=== PATIENT | male | born 1960 | race Caucasian/White ===

== ENCOUNTER 2018-04-23 14:54 | Inpatient (IN) | payer MEDICAID, OTHER ==
[2018-04-23] VITALS (16 sets, daily range): BP systolic 139–173; BP diastolic 76–107
[~2018-04-23] VITALS: Ht 185.4 cm; Wt 100.0 kg
[~2018-04-23 14:54] MED LIST: niCARDipine in sodium Chloride, iso-osm 20mg/200ml bag IV ONE
[2018-04-23] MEDS ORDERED: morphine 4 MG/ML inj SYRINge IV ONE (15:55)
[2018-04-23] MEDS ORDERED: ondansetron/PF 4mg/2ml inj IV ONE (15:55)
[2018-04-23] MEDS ORDERED: normal saline 1000ml 1,000 ML IV ONE (16:34)
[2018-04-23] MEDS ORDERED: ceFAZolin 1000mg inj ONE ×3 (17:03→19:50)
[2018-04-23 17:10] LABS: BASOPHILS # (AUTO) 0.1 X10'3 (0-0.2); BASOPHILS % (AUTO) 0.5 % (0-1); EOSINOPHILS % (AUTO) 0 % (0-6); HEMATOCRIT 47.9 % (42.0-52.0); HEMOGLOBIN 16.1 g/dl (14.0-17.9); LYMPHOCYTES # (AUTO) 1.1 X10'3 (1.1-4.8); LYMPHOCYTES % (AUTO) 8.4 % (21-51); MEAN CORPUSCULAR HEMOGLOBIN 33.3 PG (27.0-31.0); MEAN CORPUSCULAR HGB CONC 33.6 % (33.0-36.5); MEAN CORPUSCULAR VOLUME 98.9 FL (78-98); MONOCYTES # (AUTO) 0.8 X10'3 (0-0.9); NEUTROPHILS # (AUTO) 11.2 X10'3 (1.8-7.7); NEUTROPHILS % (AUTO) 85.1 % (42-75); PLATELET COUNT 397 X10'3 (140-440); RED BLOOD COUNT 4.85 X10'6 (4.70-6.10); RED CELL DISTRIBUTION WIDTH 15.5 % (11.5-14.5); WHITE BLOOD COUNT 13.1 X10'3 (4.5-11.0)
[2018-04-23 17:19] LABS: PROTHROMBIN TIME 10.3 SECONDS (9.0-12.0)
[2018-04-23 17:23] LABS: CLARITY,URINE CLEAR (Clear); COLOR,URINE YELLOW (Yellow); GLUCOSE, URINE NEGATIVE (Neg); KETONES,URINE TRACE mg/dl (Neg); LEUKOCYTE ESTERASE ,URINE NEGATIVE (Neg); NITRITES, URINE NEGATIVE (Neg); OCCULT BLOOD,URINE TRACE-INTACT (Neg); PROTEIN,URINE 30 mg/dl (Neg); UROBILINOGEN,URINE 0.2 E.U/dL (0.2-1.0)
[2018-04-23 17:25] LABS: ALANINE AMINOTRANSFERASE 38 U/L (12-78); ALBUMIN 3.3 G/DL (3.4-5.0); ALBUMIN/GLOBULIN RATIO 0.8 (1.1-1.5); ALKALINE PHOSPHATASE 100 IU/L (46-116); ANION GAP 13 (8-16); ASPARTATE AMINO TRANSFERASE 25 U/L (10-37); BILIRUBIN,TOTAL 0.4 MG/DL (0.1-1.0); BLOOD UREA NITROGEN 12 MG/DL (7-18); BUN/CREATININE RATIO 10.6 (5.4-32.0); CALCIUM 8.9 MG/DL (8.5-10.1); CHLORIDE 103 MMOL/L (99-107); CREATININE 1.13 MG/DL (0.60-1.10); GLUCOSE 169 MG/DL (70-104); POTASSIUM 3.6 MMOL/L (3.5-5.1); SODIUM 140 MMOL/L (135-145); TOTAL CARBON DIOXIDE 24.5 MMOL/L (24-32); TOTAL PROTEIN 7.6 G/DL (6.4-8.2); eGFR 67 ML/MIN
[2018-04-23 17:27] LABS: UA COLLECTION TYPE CLN CATCH MIDSTREAM
[2018-04-23 17:28] LABS: RBC,URINE 0-2 /HPF (0-2); WBC,URINE 0-4 /HPF (0-4)
[2018-04-23 17:29] LABS: BACTERIA,URINE NONE SEEN /HPF (Neg); MUCUS STRANDS MANY /LPF (Neg); SQUAMOUS EPITHELIAL CELL,UR FEW /LPF (FEW)
[2018-04-23] MEDS ORDERED: bupivacaine 0.25%/epinephrine 1:200,000 inj (contains preserv. MDV) IJ ONE (18:00)
[2018-04-23] MEDS ORDERED: midazolam 2 mg/2 ml injection ONE (19:40)
[2018-04-23] MEDS ORDERED: fentaNYL /PF 50mcg/ml 5ml ampule ONE (19:44)
[2018-04-23] MEDS ORDERED: ringers solution, lacted 1,000 ML IV SCH (20:25)
[2018-04-23] MEDS ORDERED: meperidine/PF 25mg/ml syringe IV PRN ×3 (20:25)
[2018-04-23] MEDS ORDERED: morphine 4 MG/ML inj SYRINge IV PRN ×3 (20:25→21:35)
[2018-04-23] MEDS ORDERED: proCHLORperazine 10 MG/2 ml inj IV PRN (20:25)
[2018-04-23] MEDS ORDERED: ondansetron/PF 4mg/2ml inj IV PRN ×2 (20:25→21:35)
[2018-04-23] MEDS ORDERED: glycopyrrolate 0.2mg/ml inj ONE (20:55)
[2018-04-23] MEDS ORDERED: neostigmine methylsulfate 1 MG/ML 10ml vial ONE (20:55)
[2018-04-23] MEDS ORDERED: dexamethasone sod phosphate 4mg/ml inj. ONE (20:55)
[2018-04-23] MEDS ORDERED: ondansetron/PF 4mg/2ml inj ONE (20:55)
[2018-04-23] MEDS ORDERED: LIDOcaine 2% (20mg/ml) 5ml vial ONE (20:55)
[2018-04-23] MEDS ORDERED: propofol inj 20 ML IV ONE (20:55)
[2018-04-23] MEDS ORDERED: rocuronium 10mg/ml inj IV ONE (20:55)
[2018-04-23] MEDS ORDERED: ePHEDrine 50MG/ML INJ. ONE (20:59)
[2018-04-23] MEDS ORDERED: normal saline 1000ml 1,000 ML IV SCH (21:33)
[2018-04-23] MEDS ORDERED: acetaminophen 325mg tablet PO PRN (21:35)
[2018-04-23] MEDS ORDERED: magnesium hydroxide 30ml (MOM) UD suspension PO PRN (21:35)
[2018-04-23] MEDS ORDERED: mag hydrox/Alum hydrox/simeth 30ml oral suspension PO PRN (21:35)
[2018-04-24] VITALS (12 sets, daily range): BP systolic 119–188; BP diastolic 83–94
[2018-04-24] MEDS ORDERED: piperacillin/tazo 3.375gm/50ml 50 ML IV SCH
[2018-04-24] MEDS ORDERED: iohexol 350MG/ML 100ml bottle IV ONE (00:08)
[2018-04-24 01:52] LABS: HEMATOCRIT 42.4 % (42.0-52.0); HEMOGLOBIN 14.3 g/dl (14.0-17.9); MEAN CORPUSCULAR HEMOGLOBIN 33.5 PG (27.0-31.0); MEAN CORPUSCULAR HGB CONC 33.6 % (33.0-36.5); MEAN CORPUSCULAR VOLUME 99.7 FL (78-98); MEAN PLATELET VOLUME 8.9 FL (7.4-10.4); PLATELET COUNT 340 X10'3 (140-440); RED BLOOD COUNT 4.25 X10'6 (4.70-6.10); RED CELL DISTRIBUTION WIDTH 15.5 % (11.5-14.5); WHITE BLOOD COUNT 12.7 X10'3 (4.5-11.0)
[2018-04-24] MEDS ORDERED: normal saline 1000ml 1,000 ML IV ONE (02:35)
[2018-04-24] MEDS ORDERED: NORepinephrine 8mg/ 250ml NS 250 ML IV SCH (02:50)
[2018-04-24] MEDS ORDERED: NORepinephrine 8mg/ 250ml NS 250 ML IV ONE (02:53)
[2018-04-24] MEDS ORDERED: piperacillin/tazo 3.375gm/50ml 50 ML IV ONE (03:01)
[2018-04-24] MEDS ORDERED: lactobacillus rhamnosus 10,000 MMU CELLS/CAPSULE PO SCH (08:00)
[2018-04-24] MEDS ORDERED: heparin, porcine 5000 units/ml vial SQ SCH (08:00)
== END 2018-04-24 07:37 | disposition short-term general hospital (02) | DRG 329 ==
LOC: ER 14:55 → CICU 2S 21:33
PROVIDERS: ADMIT Internal Medicine; ATTEND Internal Medicine Critical Care Medicine
PROC: 0DQ84ZZ Repair Small Intestine, Percutaneous Endoscopic Approach (ICD-10-PCS; principal; 2018-04-23 19:38)
PROC: B3251ZZ Computerized Tomography (CT Scan) of Bilateral Common Carotid Arteries using Low Osmolar Contrast (ICD-10-PCS; 2018-04-24)
PROC: 3E04317 Introduction of Other Thrombolytic into Central Vein, Percutaneous Approach (ICD-10-PCS; 2018-04-24)
PROC: B32G1ZZ Computerized Tomography (CT Scan) of Bilateral Vertebral Arteries using Low Osmolar Contrast (ICD-10-PCS; 2018-04-24)
PROC: B3201ZZ Computerized Tomography (CT Scan) of Thoracic Aorta using Low Osmolar Contrast (ICD-10-PCS; 2018-04-24)
PROC: B32R1ZZ Computerized Tomography (CT Scan) of Intracranial Arteries using Low Osmolar Contrast (ICD-10-PCS; 2018-04-24)
PROC: B3281ZZ Computerized Tomography (CT Scan) of Bilateral Internal Carotid Arteries using Low Osmolar Contrast (ICD-10-PCS; 2018-04-24)
DX: K40.31 Unilateral inguinal hernia, with obstruction, without gangrene, recurrent (principal); I63.9 Cerebral infarction, unspecified; K02.9 Dental caries, unspecified; I65.21 Occlusion and stenosis of right carotid artery; Z86.711 Personal history of pulmonary embolism
CPT/HCPCS: 93306; Z7506; 36415; 70450; 70496; 70498; 71045; 80053; 81001; 84484; 85025; 85027; 85610; 86885; 86900; 86901; 86920; 87070; 93005; 96365; 96375; 99285; A4315; A6213; A6258; A7000; C1751; J0690; J1100; J2001; J2175; J2250; J2270; J2405; J2543; J2704; J2710; J2997; J3010; J3490; J7030; J7120; Q9967

== ENCOUNTER → 2024-05-17 | Outpatient (CLI) | payer MEDICAID | END | disposition home or self-care (01) | LOC: RAD 14:18 | PROVIDERS: ATTEND Urology | DX: R31.1 Benign essential microscopic hematuria (principal); N32.3 Diverticulum of bladder | CPT/HCPCS: 76770 ==